=== PATIENT | male | born 1975 | race Two or more races ===

== ENCOUNTER 2022-07-09 15:43 | Emergency (ER) | payer SELFPAY ==
[~2022-07-09] VITALS: Ht 172.7 cm; Wt 91.0 kg
[2022-07-09 15:50] VITALS: BP 130/70
[2022-07-09] MEDS ORDERED: TETANUS, DIPHTHERIA, PERTUSSIS VAC/PF 0.5ML (>10YR OLD) IM ONE (19:45)
[2022-07-09] MEDS ORDERED: LIDOCAINE HCL 1% 20ML VIAL (Pyxis) INJ INFIL ONE (19:45)
== END 2022-07-09 22:50 | disposition home or self-care (01) ==
LOC: ER 15:54
DX: S51.812A Laceration without foreign body of left forearm, initial encounter (principal); W31.89XA Contact with other specified machinery, initial encounter; Y93.89 Activity, other specified; Y92.89 Other specified places as the place of occurrence of the external cause; Y99.8 Other external cause status
CPT/HCPCS: 12002; 90471; 90715; 99283; Z7610